=== PATIENT | female | born 1990 | race Caucasian/White ===

== ENCOUNTER 2016-11-29 10:00 | Emergency (ER) | payer SELFPAY ==
[~2016-11-29] VITALS: Ht 160 cm; Wt 63.6 kg
[~2016-11-29 10:00] MED LIST: ADVAIR IH; ALBUTEROL0.09 MG/A1 IH; ALLEGRA-D 24HOU1 T24 PO; AMOXICILLIN 50500 MG PO; AMOXICILLIN 8751 TAB PO; ANAPROX DS550 MG PO; ATARAX 25MG25 MG/TAB PO; BACTRIM DS 8001 TAB PO; BCP TD; BIRTH CONTROL PO; CEFTIN500 MG PO; CEPHALEXIN500 M1 PO; CLARITIN 1010 MG/TAB PO; DESOGEN 0.15 MG1 TAB PO; DIFLUCAN PO; DOXYCYCLINE 10100 MG PO; FLAGYL500 MG PO; FLOMAX0.4 MG PO; GENTAMICIN EYE D5 ML OP; IMPLANON; LO/OVRAL-28 301 TA1 PO; LORTAB 5/500 501 TAB PO; MOTRIN 800800 MG/TAB PO; MOTRIN800 MG PO; NAPROSYN500 MG PO; NO HOME MEDICATIONS; NORCO 325 MG-51 TAB PO; NORCO 325 MG-7.1 TAB PO; OCUFLOX OPHTH DR5 ML OU; OVRAL PO; PERCOCET 325 MG1 TA2 PO; PHENERGAN 25 TA25 MG PO; PHENERGAN W/CO120 ML PO; PREDNISONE20 MG PO; PROMETHAZINE12.5 M5 PO; PROVENTIL0.09 MG/A1 IH; SINGULAIR; TRAZODONE150 MG PO; VENTOLIN0.09 MG IH; VICODIN 5/5001 UDTAB PO; ZITHROMAX Z PA250 MG PO; ZOFRAN ODT4 MG PO; ZOLOFT100 MG PO; ZOLOFT25 MG PO; ZOLOFT50 MG PO; [UNRECOGNIZED DRUG - OTHER]; [UNRECOGNIZED DRUG - OTHER]; [UNRECOGNIZED DRUG - OTHER] PO
[2016-11-29 10:04] VITALS: BP 130/35; PULSE 87; TEMP 96.7
[2016-11-29] MEDS ORDERED: AMOXICILLIN875 MG PO (10:23)
== END 2016-11-29 10:30 | disposition home or self-care (01) ==
LOC: COL.ER 10:00
DX: H66.91 Otitis media, unspecified, right ear (principal); F17.210 Nicotine dependence, cigarettes, uncomplicated; B34.9 Viral infection, unspecified; R05 Cough

== ENCOUNTER 2017-08-17 16:19 | Emergency (ER) | payer SELFPAY ==
[~2017-08-17] VITALS: Ht 160 cm; Wt 65.9 kg
[~2017-08-17 16:19] MED LIST changes: +AMOXICILLIN875 MG PO
[2017-08-17 16:23] VITALS: BP 131/81; PULSE 97; TEMP 99.1
[2017-08-17] MEDS ORDERED: TESSALON P100 MG/CAP PO (16:50)
== END 2017-08-17 17:21 | disposition home or self-care (01) ==
LOC: COL.ER 16:19
DX: J06.9 Acute upper respiratory infection, unspecified (principal); F17.210 Nicotine dependence, cigarettes, uncomplicated

== ENCOUNTER 2018-05-14 17:03 | Emergency (ER) | payer SELFPAY ==
[~2018-05-14] VITALS: Ht 160 cm; Wt 70.5 kg
[~2018-05-14 17:03] MED LIST changes: +TESSALON P100 MG/CAP PO
[2018-05-14 17:04] VITALS: BP 148/111; TEMP 98
[2018-05-14 17:39] LABS: COLLECTION METHOD CLEAN CATCH
[2018-05-14 17:52] LABS: BASO % 0.2 % (0.0-2.0); EOS % 0.5 % (0-4.0); GRAN # 6.1 (1.4-6.5); GRAN % 74.4 % (42.2-75.2); HEMATOCRIT 38.5 % (37.0-47.0); HEMOGLOBIN 13.5 g/dl (12.5-16.0); LYMPH # 1.4 (1.2-3.4); LYMPH % 17.2 % (20.0-51.0); MEAN CELL VOLUME 95 fl (80.0-100.0); MEAN CORPUSCULAR HEMOGLOBIN 33 pg (27.0-31.0); MEAN CORPUSCULAR HGB CONC 35 g/dl (33.0-37.0); MEAN PLATELET VOLUME 10.3 fl (7.4-10.4); MONO # 0.6 (0.1-0.6); MONO % 7.3 % (1.7-9.3); PLATELET COUNT 278 K/mm3 (130-400); RED BLOOD COUNT 4.05 M/mm3 (4.10-5.30); REDCELL DISTRIBUTION WIDTH-CV 11.8 % (11.5-14.5)
[2018-05-14 17:54] LABS: URINE BACTERIA None Seen /hpf; URINE RBC >50 /hpf; URINE WBC 20-50 /hpf
[2018-05-14 18:00] LABS: PH 6 (5-8); URINE APPEARANCE Clear; URINE BILIRUBIN Negative (NEGATIVE); URINE BLOOD 3+ (NEGATIVE); URINE COLOR Yellow; URINE GLUCOSE Negative (NEGATIVE); URINE KETONE Negative (NEGATIVE); URINE LEUKOCYTE ESTERASE Trace (NEGATIVE); URINE NITRATE Negative (NEGATIVE); URINE PROTEIN(semi-quant) 1+ (NEGATIVE); URINE UROBILINOGEN Negative (NEGATIVE)
[2018-05-14 18:03] LABS: ALBUMIN 4.1 gm/dL (3.5-5.0); BILIRUBIN,TOTAL 0.7 mg/dL (0.0-1.0); CREATININE, serum 0.73 mg/dL (0.52-1.25); POTASSIUM 3.6 mmol/L (3.4-5.0); TOTAL PROTEIN 7.4 gm/dL (6.4-8.2)
[2018-05-14 18:32] LABS: THYROID STIMULATING HORMONE 5.46 uIU/mL (0.465-4.680)
[2018-05-14] MEDS ORDERED: OMNICEF 300MG300 MG PO (19:52)
[2018-05-14] MEDS ORDERED: FLAGYL500 MG PO (20:01)
[2018-05-14 20:10] VITALS: PULSE 61
[2018-05-14] MEDS ORDERED: DOXYCYCLINE 10100 MG PO (21:59)
== END 2018-05-14 20:10 | disposition home or self-care (01) ==
LOC: COL.ER 17:03
PROVIDERS: Physician Assistant
DX: N93.9 Abnormal uterine and vaginal bleeding, unspecified (principal); E03.9 Hypothyroidism, unspecified; N39.0 Urinary tract infection, site not specified; F17.210 Nicotine dependence, cigarettes, uncomplicated; Z90.49 Acquired absence of other specified parts of digestive tract; Z90.89 Acquired absence of other organs
CPT/HCPCS: J0696; J1885

== ENCOUNTER 2019-07-07 18:27 | Outpatient (CLI) | payer MEDICAID ==
[~2019-07-07] VITALS: Ht 162.6 cm; Wt 90.9 kg
[~2019-07-07 18:27] MED LIST changes: +OMNICEF 300MG300 MG PO
--- NOTE | 2019-07-07 18:30 | NUR ---
Pt arrived on unit ambulatory and with complaints of back pain and occasional contractions. Pt denies any leaking of fluid or vaginal bleeding and reports normal movement. Pt reports lower back pain starting earlier today and worsening. EFM and toco monitors started. Vital signs WNL. SVE by this RN closed/thick/high. Spoke with Dr. Kirkpatrick for an update on pt's arrival, concerns, history and FHR tracing reviewed. Orders for UA and PO tylenol received. See EMAR for details.
[2019-07-07 18:38] VITALS: BP 142/90; PULSE 75; TEMP 98.2
[2019-07-07] MEDS ORDERED: PRENATAL (18:47)
[2019-07-07] MEDS ORDERED: WELLBUTRIN XL150 MG PO (18:47)
[2019-07-07 19:32] LABS: COLLECTION METHOD CLEAN CATCH
[2019-07-07 20:00] VITALS: BP 115/70; PULSE 84
[2019-07-07 20:37] LABS: PH 7 (5-8); SQUAMOUS EPITHELIAL 0-2 /hpf; URINE APPEARANCE Clear; URINE BACTERIA Rare /hpf; URINE BILIRUBIN Negative (NEGATIVE); URINE BLOOD Negative (NEGATIVE); URINE COLOR Yellow; URINE GLUCOSE Negative (NEGATIVE); URINE KETONE Negative (NEGATIVE); URINE LEUKOCYTE ESTERASE Negative (NEGATIVE); URINE NITRATE Negative (NEGATIVE); URINE PROTEIN(semi-quant) Negative (NEGATIVE); URINE RBC 0-2 /hpf; URINE UROBILINOGEN Negative (NEGATIVE); URINE WBC 0-2 /hpf
[2019-07-07 20:54] VITALS: BP 112/65; PULSE 78
--- NOTE | 2019-07-07 21:00 | NUR ---
Spoke with Dr. Kirkpatrick for an update on pt's status. Labs reviewed and FHR tracing reviewed. Orders for discharge home received. Plan of care reviewed with pt. Pt verbalized an understanding, agreed with the plan and states no questions or concerns at this time.
== END 2019-07-07 21:05 | disposition home or self-care (01) ==
LOC: LDRO 18:27 → LDR 19:09 → LDRO 21:05
PROVIDERS: Obstetrics & Gynecology
DX: O99.89 Other specified diseases and conditions complicating pregnancy, childbirth and the puerperium (principal); M54.9 Dorsalgia, unspecified; Z3A.30 30 weeks gestation of pregnancy
CPT/HCPCS: OP

== ENCOUNTER 2019-08-11 14:01 | Emergency (ER) | payer MEDICAID ==
[~2019-08-11] VITALS: Ht 162.6 cm; Wt 95.0 kg
[~2019-08-11 14:01] MED LIST changes: +PRENATAL; +WELLBUTRIN XL150 MG PO
[2019-08-11 14:12] VITALS: BP 129/97
[2019-08-11] MEDS ORDERED: ZITHROMAX 250M250 MG PO (15:45)
[2019-08-11] MEDS ORDERED: PREDNISONE20 MG PO (15:45)
[2019-08-11 16:53] VITALS: PULSE 103; TEMP 98.4
== END 2019-08-11 16:53 | disposition home or self-care (01) ==
LOC: COL.ER 14:01
DX: O99.513 Diseases of the respiratory system complicating pregnancy, third trimester (principal); J40 Bronchitis, not specified as acute or chronic; Z90.89 Acquired absence of other organs; Z87.442 Personal history of urinary calculi; Z3A.36 36 weeks gestation of pregnancy
CPT/HCPCS: J7512

== ENCOUNTER 2019-08-30 22:19 | Outpatient (CLI) | payer MEDICAID ==
[~2019-08-30] VITALS: Ht 165.1 cm; Wt 97.7 kg
[~2019-08-30 22:19] MED LIST changes: +ZITHROMAX 250M250 MG PO
--- NOTE | 2019-08-30 22:30 | NUR ---
G5L2 at 38 weeks and 1 day arrives to unit with complaint of pelvic pressure. Pt states she was having mild contractions for a few hours today that stopped around 1730 but has felt an increase in pelvic pressure since. Pt reports good movement, denies LOF or vaginal bleeding. Pt denies headaches, blurry vision or RUQ pain. Pt oriented to room, call light within reach, bed in low and locked position. US and toco explained and applied. SVE closed/50/-3. Plan of care reviewed with patient.
[2019-08-30 22:45] VITALS: BP 134/85; PULSE 89; TEMP 98.1
--- NOTE | 2019-08-30 23:15 | NUR ---
Category 1 FHR tracing obtained. Reviewed discharge plan with patient, pt verbalized understanding. Return precautions reviewed. Pt seen ambulating off unit with significant other.
== END 2019-08-30 23:15 | disposition home or self-care (01) ==
LOC: LDRO 22:19 → LDR 22:30 → LDRO 23:15 → LDR 08-31 16:13
DX: O26.893 Other specified pregnancy related conditions, third trimester (principal); R10.2 Pelvic and perineal pain; Z3A.38 38 weeks gestation of pregnancy
CPT/HCPCS: OP

== ENCOUNTER → 2019-09-04 | Outpatient (CLI) | payer MEDICAID ==
[2019-09-04 12:51] LABS: COLLECTION METHOD CLEAN CATCH
[2019-09-04 12:56] LABS: BASO % 0.2 % (0.0-2.0); EOS % 0.3 % (0-4.0); GRAN # 6.1 (1.4-6.5); GRAN % 70.6 % (42.2-75.2); HEMATOCRIT 35.8 % (37.0-47.0); HEMOGLOBIN 11.9 g/dl (12.5-16.0); LYMPH # 1.8 (1.2-3.4); LYMPH % 20.8 % (20.0-51.0); MEAN CELL VOLUME 96 fl (80.0-100.0); MEAN CORPUSCULAR HEMOGLOBIN 32 pg (27.0-31.0); MEAN CORPUSCULAR HGB CONC 33 g/dl (33.0-37.0); MEAN PLATELET VOLUME 11.6 fl (7.4-10.4); MONO # 0.6 (0.1-0.6); MONO % 7.4 % (1.7-9.3); PLATELET COUNT 245 K/mm3 (130-400); RED BLOOD COUNT 3.72 M/mm3 (4.10-5.30); REDCELL DISTRIBUTION WIDTH-CV 13.4 % (11.5-14.5)
[2019-09-04 12:59] LABS: PH 6 (5-8); SQUAMOUS EPITHELIAL 0-2 /hpf; URINE APPEARANCE Clear; URINE BACTERIA Rare /hpf; URINE BILIRUBIN Negative (NEGATIVE); URINE BLOOD Negative (NEGATIVE); URINE COLOR Yellow; URINE GLUCOSE Negative (NEGATIVE); URINE KETONE Negative (NEGATIVE); URINE LEUKOCYTE ESTERASE Negative (NEGATIVE); URINE NITRATE Negative (NEGATIVE); URINE PROTEIN(semi-quant) 1+ (NEGATIVE); URINE RBC 0-2 /hpf; URINE UROBILINOGEN Negative (NEGATIVE); URINE WBC 0-2 /hpf
[2019-09-04 13:07] LABS: ALBUMIN 3.6 gm/dL (3.5-5.0); BILIRUBIN,TOTAL 0.4 mg/dL (0.0-1.0); CALCIUM 9.5 mg/dL (8.4-10.2); CREATININE, serum 0.56 (0.52-1.25); TOTAL PROTEIN 6.7 gm/dL (6.4-8.2)
--- NOTE | 2019-09-04 13:09 | NUR ---
1235 - Patient reports to unit for monitoring after high blood pressures in office. Patient reports seeing spots and floaters, denies bleeding, contractions, and reports good movement. Pt changed into gown, urine sample obtained, monitoring explained and placed, vitals taken. Lab to bedside to draw ordered labs. Assessment completed. Pt updated and agrees to plan of care.
[2019-09-04 13:33] LABS: TRICYCLIC ANTIDEPRESS URINE NEGATIVE
[2019-09-04 13:35] VITALS: BP 127/80; PULSE 88; TEMP 98.8
--- NOTE | 2019-09-04 13:40 | NUR ---
Dr. Benjamin notified at 1325 regarding patient assessment, lab results, and vital signs. Reviewed FHR strip. Orders to discharge home with precautions and office will call for follow up appointment. 1340- Patient given discharge instructions. Reviewed PIH and labor precautions and kick counts. Patient denies questions and leaves ambulatory.
== END ==
LOC: LDRO 12:25 → LDR 12:30 → LDRO 09-06 12:30
PROVIDERS: Obstetrics & Gynecology
DX: O13.3 Gestational [pregnancy-induced] hypertension without significant proteinuria, third trimester (principal); O99.89 Other specified diseases and conditions complicating pregnancy, childbirth and the puerperium; H43.399 Other vitreous opacities, unspecified eye; R60.0 Localized edema; Z3A.38 38 weeks gestation of pregnancy
CPT/HCPCS: OP

== ENCOUNTER 2019-09-08 20:11 | Outpatient (CLI) | payer MEDICAID ==
[~2019-09-08] VITALS: Ht 162.6 cm; Wt 99.5 kg
--- NOTE | 2019-09-08 20:20 | NUR ---
HERE WITH FOB FOR LABOR CHECK. CTXS ALL DAY AND STRONGER NOW IN BACK AND LOWER ABDOMEN ABOUT Q 6-10 MIN PT STATES
[2019-09-08 20:34] VITALS: BP 140/88; PULSE 96; TEMP 98.7
== END 2019-09-08 22:24 | disposition home or self-care (01) ==
LOC: LDRO 20:11 → LDR 20:11 → LDRO 22:24
DX: Z34.93 Encounter for supervision of normal pregnancy, unspecified, third trimester (principal); Z3A.39 39 weeks gestation of pregnancy
CPT/HCPCS: OP

== ENCOUNTER 2019-09-09 02:26 | Inpatient (IN) | payer MEDICAID ==
[2019-09-09] VITALS (26 sets, daily range): BP systolic 104–156; BP diastolic 7–94; PULSE 73–121; TEMP 97.8–98.2
[~2019-09-09] VITALS: Ht 162.6 cm; Wt 99.5 kg
--- NOTE | 2019-09-09 02:45 | NUR ---
RETURNS WITH SROM ACTIVE LABOR /-2. CLEAR FLUID ADM ASSESSMENT- IV AND LEIGHANN BEGUN AFTER ORDERS RECEIVED
[2019-09-09 03:44] LABS: BASO % 0.3 % (0.0-2.0); EOS # 0.1 (0.0-0.7); EOS % 0.6 % (0-4.0); GRAN # 8.1 (1.4-6.5); GRAN % 70.3 % (42.2-75.2); HEMOGLOBIN 11.6 g/dl (12.5-16.0); LYMPH # 2.4 (1.2-3.4); LYMPH % 20.8 % (20.0-51.0); MEAN CELL VOLUME 96 fl (80.0-100.0); MEAN CORPUSCULAR HEMOGLOBIN 32 pg (27.0-31.0); MEAN CORPUSCULAR HGB CONC 33 g/dl (33.0-37.0); MEAN PLATELET VOLUME 11.5 fl (7.4-10.4); MONO # 0.8 (0.1-0.6); MONO % 7.2 % (1.7-9.3); PLATELET COUNT 249 K/mm3 (130-400); RED BLOOD COUNT 3.65 M/mm3 (4.10-5.30); REDCELL DISTRIBUTION WIDTH-CV 13.4 % (11.5-14.5)
--- NOTE | 2019-09-09 03:50 | NUR ---
0350 TEST DOSE FOR EPIDURAL PER Joanne CHAPMAN. TO;ERATED WELL TO LL 0400 6-7 CM KENDRICK PLACED 0405 PROLONGED VARIABLE DECEL TO 65 BPM . SVE NO CORD PALPABLE. NO REBOUND WHN HEAD PUSHED UP WITH EXAM HAND. TO OPPOSITE SIDE, NO RELOVE, O2 MASK 10 L. 0411 EPHEDRINE 10 MG IV DUE TO BP 104/55. RETURN TO BASELINE AFTER 6 MIN FROM EPHEDRINE DOSE.110/66 -418 DR LUKE HERE. PT C/O LEFT EYE LID AREA FELLING SWOLLEN. COLD COMPRESS APPLIED- VISIBLE EDEMA SLIGHTLY
--- NOTE | 2019-09-09 07:04 | NUR ---
BEDSIDE REPORT FROM YOKO LERMA AT 0615. PATIENT RESTING IN BED WITH PEANUT BALL IN PLACE. 0640- SVE BY THIS NURSE. CALLED DR LUKE TO COME TO DELIVERY 0644- DR LUKE IN ROOM. PATIENT PUSHING INTERMITTENTLY WITH CONTRACTIONS 0704- BY DR LUKE. TO MOTHERS ABDOMEN IN CARE OF MAVIS Steel RN. FOB CUT CORD. PLACENTA SPON DELIVERED AT 0707. PITOCIN AT 333 MLS. /HR. FUNDAL MASSAGE PROVIDED. PERINEUM INTACT. ROSE MARIE CARE PROVIDED. ICE PACK TO PERINEUM. RECOVERY STARTED AT 0715.
[2019-09-09 07:31] LABS: TRICYCLIC ANTIDEPRESS URINE NEGATIVE
--- NOTE | 2019-09-09 12:00 | NUR ---
Assume care of patient. Rests in bed, alert. 1240 Ibuprofen 600 mg given per request and as ordered.
--- NOTE | 2019-09-09 17:15 | NUR ---
Rests in bed, alert. Percocet 5/325 mg one given per request and as ordered.
[2019-09-10 05:15] VITALS: BP 144/89; PULSE 72
[2019-09-10 08:00] VITALS: BP 131/84; PULSE 89; TEMP 97.8
--- NOTE | 2019-09-10 09:32 | NUR ---
Hat Blocking Machine Operator received social service consult for patient as she has history of drug use. PHAM met with RN, who advised no other risk factors or concerns at this time. PHAM reviewed patient chart and noted positive urine drug screen on 02/02/19 for cannabinoid. Patient tested negative yesterday upon delivery. PHAM met with patient and father of the , Isreal (ph#[phone]) to review supports and any needed resources. Patient reports she and Isreal have family in the area and have everything they need to care for their . Patient states she will be . Patient does not work and reports she will not need childcare at this time. Patient has two other children, ages 12 and 13. Patient reports she already has WIC set up through [facility]. Patient reports history of depression and states she currently takes medication. Patient states she has utilized [facility] in the past and knows how to access their services. PHAM addressed the positive urine drug screen from 02/02/19. Patient states she and Isreal went to [place] for their anniversary before she realized she was and she used marijuana at this time. Patient states once she realized she was she stopped. Patient states she has no concerns about returning home with infant. PHAM provided [facility] Resource Guide along with a brief review of pertinent services. PHAM made report in Child Protective Services based on the positive urine drug screen. Intake #[id number].
[2019-09-10] MEDS ORDERED: IBU600 MG PO (10:53)
--- NOTE | 2019-09-10 12:05 | NUR ---
Dr Powell here and at pt's bedside. Hemmorrhoid evaluated and decision made to make incision and drain. Incision made and thrombectomy was performed. Guaze dressing applied. Plan of care reviewed and pt to do sitz baths and warm compresses, use Anusol and change dressings BID and as needed. Pt tolerated well.
[2019-09-10 16:30] VITALS: BP 130/80; PULSE 80; TEMP 98
[2019-09-10 20:00] VITALS: BP 142/77; PULSE 83; TEMP 98.3
[2019-09-11 08:00] VITALS: BP 122/64; PULSE 72; TEMP 98.6
[2019-09-11] MEDS ORDERED: PERCOCET 325 MG1 TA2 PO (12:34)
--- NOTE | 2019-09-11 13:15 | NUR ---
PATIENT DISCHARGE INSTRUCTIONS REVIEWED WITH HER AND . SCRIPT FOR PERCOCET GIVEN AND EXPLAINED. DISCHARGE TEACHING REVIEWED. PATIENT VERBALIZES UNDERSTANDING. ESCORTED OUT TO VEHICLE
== END 2019-09-11 13:30 | disposition home or self-care (01) | DRG 807 ==
LOC: LDRO 02:26 → OB 02:50 → LDR 02:50 → OB 09:00
PROVIDERS: ADMIT Obstetrics & Gynecology
PROC: 10E0XZZ Delivery of Products of Conception, External Approach (ICD-10-PCS; principal; 2019-09-09)
DX: O99.824 Streptococcus B carrier state complicating childbirth (principal); Z37.0 Single live birth; O22.43 Hemorrhoids in pregnancy, third trimester; Z3A.39 39 weeks gestation of pregnancy; Z90.49 Acquired absence of other specified parts of digestive tract; Z90.89 Acquired absence of other organs; Z87.442 Personal history of urinary calculi; Z87.891 Personal history of nicotine dependence
CPT/HCPCS: J2540; J2590; J7120

== ENCOUNTER 2020-06-12 13:12 | Emergency (ER) | payer MEDICAID ==
[~2020-06-12] VITALS: Ht 162.6 cm; Wt 81.8 kg
[~2020-06-12 13:12] MED LIST changes: +IBU600 MG PO
[2020-06-12 13:23] VITALS: BP 138/93; TEMP 99
[2020-06-12] MEDS ORDERED: CRUTCHES MC (14:40)
[2020-06-12 14:53] VITALS: PULSE 87
== END 2020-06-12 14:53 | disposition home or self-care (01) ==
LOC: COL.ER 13:12
DX: S93.402A Sprain of unspecified ligament of left ankle, initial encounter (principal); W10.8XXA Fall (on) (from) other stairs and steps, initial encounter; Y92.009 Unspecified place in unspecified non-institutional (private) residence as the place of occurrence of the external cause

== ENCOUNTER 2021-05-07 12:33 | Emergency (ER) | payer MEDICAID ==
[~2021-05-07] VITALS: Ht 162.6 cm; Wt 79.5 kg
[~2021-05-07 12:33] MED LIST changes: +CRUTCHES MC
[2021-05-07 13:05] VITALS: BP 143/88; PULSE 81; TEMP 98.5
[2021-07-06] MEDS ORDERED: ZOFRAN ODT4 MG PO (13:38)
== END 2021-05-07 13:07 | disposition home or self-care (01) ==
LOC: COL.ER 12:33
DX: B08.4 Enteroviral vesicular stomatitis with exanthem (principal)

== ENCOUNTER 2021-06-20 12:36 | Emergency (ER) | payer MEDICAID ==
[~2021-06-20] VITALS: Ht 162.6 cm; Wt 77.3 kg
[2021-06-20 12:47] VITALS: BP 164/79; TEMP 98
[2021-06-20 13:30] VITALS: PULSE 82
[2021-07-06] MEDS ORDERED: ZOFRAN ODT4 MG PO (13:38)
== END 2021-06-20 13:30 | disposition home or self-care (01) ==
LOC: COL.ER 12:36
DX: B08.4 Enteroviral vesicular stomatitis with exanthem (principal); F17.200 Nicotine dependence, unspecified, uncomplicated

== ENCOUNTER 2021-10-08 17:10 | Emergency (ER) | payer MEDICAID ==
[~2021-10-08] VITALS: Ht 162.6 cm; Wt 75.9 kg
[2021-10-08 17:32] VITALS: TEMP 98.3
[2021-10-08] MEDS ORDERED: AMOXICILLIN 8751 TAB PO (17:54)
[2021-10-08] MEDS ORDERED: DIFLUCAN150 MG PO (17:54)
[2021-10-08 18:23] VITALS: BP 132/78; PULSE 76
== END 2021-10-08 18:23 | disposition home or self-care (01) ==
LOC: COL.ER 17:10
DX: J32.9 Chronic sinusitis, unspecified (principal); F32.A Depression, unspecified; Z86.16 Personal history of COVID-19; Z79.899 Other long term (current) drug therapy

== ENCOUNTER 2021-11-14 14:08 | Emergency (ER) | payer MEDICAID ==
[~2021-11-14] VITALS: Ht 162.6 cm; Wt 77.3 kg
[~2021-11-14 14:08] MED LIST changes: +DIFLUCAN150 MG PO
[2021-11-14 14:34] VITALS: TEMP 98.8
[2021-11-14] MEDS ORDERED: PREDNISONE20 MG PO (16:39)
[2021-11-14] MEDS ORDERED: PROAIR HFA0.09 MG/AC IH (16:39)
[2021-11-14 16:52] VITALS: BP 134/83; PULSE 67
== END 2021-11-14 16:52 | disposition home or self-care (01) ==
LOC: COL.ER 14:08
DX: J45.901 Unspecified asthma with (acute) exacerbation (principal); J06.9 Acute upper respiratory infection, unspecified; Z20.822 Contact with and (suspected) exposure to COVID-19; Z87.891 Personal history of nicotine dependence

== ENCOUNTER 2021-12-27 08:59 | Emergency (ER) | payer MEDICAID ==
[~2021-12-27] VITALS: Ht 162.6 cm; Wt 77.3 kg
[~2021-12-27 08:59] MED LIST changes: +PROAIR HFA0.09 MG/AC IH
[2021-12-27 09:09] VITALS: TEMP 98.4
[2021-12-27 09:47] LABS: BASO % 0.3 % (0.0-2.0); EOS # 0.1 K/mm3 (0.0-0.7); EOS % 0.9 % (0.0-4.0); GRAN # 6.3 K/mm3 (1.4-6.5); GRAN % 68.3 % (42.2-75.2); HEMOGLOBIN 11.8 g/dl (12.5-16.0); LYMPH # 2.1 K/mm3 (1.2-3.4); LYMPH % 23.1 % (20.0-51.0); MEAN CELL VOLUME 93 fl (80.0-100.0); MEAN CORPUSCULAR HEMOGLOBIN 33 pg (27-31); MEAN CORPUSCULAR HGB CONC 35 g/dl (33.0-37.0); MONO # 0.7 K/mm3 (0.1-0.6); MONO % 7.2 % (1.7-9.3); PLATELET COUNT 263 K/mm3 (130-400); RED BLOOD COUNT 3.62 M/mm3 (4.10-5.30); REDCELL DISTRIBUTION WIDTH-CV 12.6 % (11.5-14.5)
[2021-12-27 09:48] LABS: HEMATOCRIT 33.6 % (37.0-47.0)
[2021-12-27 10:05] LABS: ALBUMIN 3.9 gm/dL (3.5-5.0); BILIRUBIN,TOTAL 0.7 mg/dL (0.2-1.2); C-REACTIVE PROTEIN 0.5 mg/dL (0.00-0.50); CALCIUM 8.9 mg/dL (8.4-10.2); CREATININE, serum 0.72 mg/dL (0.57-1.11); POTASSIUM 4.1 mmol/L (3.5-4.5); TOTAL PROTEIN 6.7 gm/dL (6.2-8.1)
[2021-12-27 11:26] LABS: COLLECTION METHOD CLEAN CATCH
[2021-12-27 11:32] LABS: PH 6 (5-8); SQUAMOUS EPITHELIAL 0-2 /hpf (0-10); URINE APPEARANCE Clear (CLEAR/HAZY); URINE BACTERIA None Seen /hpf (NONE SEEN); URINE BILIRUBIN Negative (NEGATIVE); URINE BLOOD 2+ (NEGATIVE); URINE COLOR Yellow (YELLOW); URINE GLUCOSE Negative (NEGATIVE); URINE KETONE Negative (NEGATIVE); URINE LEUKOCYTE ESTERASE Negative (NEGATIVE); URINE NITRATE Negative (NEGATIVE); URINE PROTEIN(semi-quant) Negative (NEGATIVE); URINE RBC 0-2 /hpf (0-2); URINE UROBILINOGEN Negative (NEGATIVE)
[2021-12-27] MEDS ORDERED: METHERGINE0.2 MG/TAB PO (11:36)
[2021-12-27] MEDS ORDERED: DOXYCYCLINE 10100 MG PO (11:36)
[2021-12-27] MEDS ORDERED: NORCO 325 MG-51 TAB PO (11:37)
[2021-12-27 12:01] VITALS: BP 112/68; PULSE 73
== END 2021-12-27 12:01 | disposition home or self-care (01) ==
LOC: COL.ER 08:59
PROVIDERS: Family Medicine
DX: O03.4 Incomplete spontaneous abortion without complication (principal); Z90.49 Acquired absence of other specified parts of digestive tract; Z86.16 Personal history of COVID-19
CPT/HCPCS: J7120

== ENCOUNTER 2022-04-05 09:02 | Emergency (ER) | payer OTHER, MEDICAID ==
[~2022-04-05] VITALS: Ht 162.6 cm; Wt 72.7 kg
[~2022-04-05 09:02] MED LIST changes: +METHERGINE0.2 MG/TAB PO
[2022-04-05 09:07] VITALS: BP 127/79; TEMP 98.3
[2022-04-05 11:15] VITALS: PULSE 66
== END 2022-04-05 11:15 | disposition home or self-care (01) ==
LOC: COL.ER 09:02
DX: S60.222A Contusion of left hand, initial encounter (principal); Z86.16 Personal history of COVID-19; Z28.310 Unvaccinated for COVID-19; W20.8XXA Other cause of strike by thrown, projected or falling object, initial encounter; Y92.59 Other trade areas as the place of occurrence of the external cause; Y99.0 Civilian activity done for income or pay

== ENCOUNTER 2022-04-09 07:55 | Emergency (ER) | payer MEDICAID ==
[~2022-04-09] VITALS: Ht 162.6 cm; Wt 70.5 kg
[2022-04-09 08:19] VITALS: BP 112/78; TEMP 98
[2022-04-09] MEDS ORDERED: PEN-VEE K500 MG PO (08:31)
[2022-04-09 08:42] VITALS: PULSE 72
== END 2022-04-09 08:43 | disposition home or self-care (01) ==
LOC: COL.ER 07:55
DX: J02.9 Acute pharyngitis, unspecified (principal); Z87.891 Personal history of nicotine dependence; Z86.16 Personal history of COVID-19; Z28.310 Unvaccinated for COVID-19

== ENCOUNTER 2022-09-13 18:58 | Observation (INO) | payer MEDICAID ==
[~2022-09-13] VITALS: Ht 162.6 cm; Wt 164.0 kg
[~2022-09-13 18:58] MED LIST changes: +PEN-VEE K500 MG PO
[2022-09-13 19:45] LABS: BASO % 0.5 % (0.0-2.0); EOS # 0.1 K/mm3 (0.0-0.7); EOS % 1.6 % (0.0-4.0); GRAN # 3.5 K/mm3 (1.4-6.5); GRAN % 47.5 % (42.2-75.2); HEMOGLOBIN 12.7 g/dl (12.5-16.0); LYMPH # 3.1 K/mm3 (1.2-3.4); LYMPH % 42.5 % (20.0-51.0); MEAN CELL VOLUME 95 fl (80.0-100.0); MEAN CORPUSCULAR HEMOGLOBIN 33 pg (27-31); MEAN CORPUSCULAR HGB CONC 35 g/dl (33.0-37.0); MEAN PLATELET VOLUME 9.4 fl (7.4-10.4); MONO # 0.6 K/mm3 (0.1-0.6); MONO % 7.6 % (1.7-9.3); PLATELET COUNT 367 K/mm3 (130-400); RED BLOOD COUNT 3.88 M/mm3 (4.10-5.30); REDCELL DISTRIBUTION WIDTH-CV 12.9 % (11.5-14.5)
[2022-09-13 19:46] LABS: HEMATOCRIT 36.7 % (37.0-47.0)
[2022-09-13 20:02] LABS: ALBUMIN 4.1 gm/dL (3.5-5.0); BILIRUBIN,TOTAL 0.7 mg/dL (0.2-1.2); CALCIUM 9.1 mg/dL (8.4-10.2); CREATININE, serum 0.78 mg/dL (0.57-1.11); POTASSIUM 3.7 mmol/L (3.5-4.5); TOTAL PROTEIN 7.7 gm/dL (6.2-8.1)
[2022-09-13 20:07] LABS: COLLECTION METHOD CLEAN CATCH
[2022-09-13 20:15] LABS: MUCOUS Present (NOT PRESENT); SQUAMOUS EPITHELIAL 0-2 /hpf (0-10); URINE BACTERIA None Seen /hpf (NONE SEEN); URINE RBC 0-2 /hpf (0-2)
[2022-09-13 20:17] LABS: PH 6.5 (5.0-8.5); URINE APPEARANCE Clear (CLEAR/HAZY); URINE BLOOD Negative (NEGATIVE); URINE COLOR Yellow (YELLOW); URINE GLUCOSE Negative (NEGATIVE); URINE KETONE TRACE (NEGATIVE); URINE NITRATE Negative (NEGATIVE); URINE PROTEIN(semi-quant) Negative (NEGATIVE); URINE UROBILINOGEN 0.2 E.U/dL (0.2-1.0)
--- NOTE | 2022-09-13 20:40 | NUR ---
2039 G7L3 7.5 WEEKS PREG TO 220 PER W/C FROM ED WITH C/O RIGHT SIDE AND RIGHT FLANK PAIN. STATES HAS BEEN HAVING OLD BROWN VAG BLEEDING FOR LAST FEW DAYS. WAS IN [place] TODAY [facility] AND WAS TOLD SHE HAD A ECTOPIC AND INSTRUCTED TO GO THE THE ER. INT IN LEFT AC. STATES PAIN 5/10. ADM ASSESSMENT COMPLETED. 2114 IV TO INT PER IV PUMP. MS 2 MG IV WITH RELIEF OF PAIN. INSTRUCTED ON NPO AND I/O.
[2022-09-13 21:00] VITALS: BP 110/61; PULSE 75; TEMP 99
[2022-09-13] MEDS ORDERED: VRAYLAR1.5 MG PO (21:55)
[2022-09-14] VITALS (11 sets, daily range): BP systolic 91–119; BP diastolic 50–69; PULSE 57–95; TEMP 98–98.9
--- NOTE | 2022-09-14 09:29 | NUR ---
Initial visit attempt; Patient indisposed, Guidance Counselor left card offering God's blessings and information regarding the availability of spiritual care at our hospital.
[2022-09-14] MEDS ORDERED: PERCOCET 325 MG1 TA2 PO (12:07)
[2022-09-14] MEDS ORDERED: IBU600 MG PO (12:07)
--- NOTE | 2022-09-14 12:40 | NUR ---
Pt back on unit via bed from OR. Report received. Plan of care reviewed with pt and boyfriend at the bedside. Call light within reach.
--- NOTE | 2022-09-14 15:00 | NUR ---
Discharge instructions and follow up care reviewed with pt and boyfriend at the bedside. Both verbalized an understanding, agreed with the plan and states no questions or concerns at this time.
[2023-04-12] MEDS ORDERED: DICLEGIS PO (13:21)
== END 2022-09-14 15:15 | disposition home or self-care (01) ==
LOC: COL.ER 18:58 → OB 20:09
PROVIDERS: Emergency Medicine; ADMIT Obstetrics & Gynecology
DX: O00.101 Right tubal pregnancy without intrauterine pregnancy (principal); K66.0 Peritoneal adhesions (postprocedural) (postinfection); Z3A.01 Less than 8 weeks gestation of pregnancy; Z87.891 Personal history of nicotine dependence
CPT/HCPCS: J1100; J2270; J2405; J2704; J2710; J3010; J7120

== ENCOUNTER 2023-10-07 18:18 | Emergency (ER) | payer MEDICAID ==
[~2023-10-07] VITALS: Ht 162.6 cm; Wt 72.7 kg
[~2023-10-07 18:18] MED LIST changes: +DICLEGIS PO; +VRAYLAR1.5 MG PO
[2023-10-07 18:26] VITALS: BP 135/85; TEMP 98.2
[2023-10-07] MEDS ORDERED: FLEXERIL 1010 MG/TAB PO (19:29)
[2023-10-07] MEDS ORDERED: Home Cyclobenzaprine 10 MG #2 TABS/PACK PO ONE (19:30)
[2023-10-07 19:50] VITALS: PULSE 64
== END 2023-10-07 19:50 | disposition home or self-care (01) ==
LOC: COL.ER 18:18
DX: S46.211A Strain of muscle, fascia and tendon of other parts of biceps, right arm, initial encounter (principal); Z86.16 Personal history of COVID-19; X50.1XXA Overexertion from prolonged static or awkward postures, initial encounter; Y93.F2 Activity, caregiving, lifting

== ENCOUNTER 2024-03-04 15:02 | Emergency (ER) | payer MEDICAID ==
[~2024-03-04] VITALS: Ht 154.9 cm; Wt 75.0 kg
[~2024-03-04 15:02] MED LIST changes: +DULCOLAX S10 MG/SUPP RC; +FLEXERIL 1010 MG/TAB PO
[2024-03-04 15:09] VITALS: BP 125/77; TEMP 98.1
[2024-03-04] MEDS ORDERED: PREDNISONE50 MG PO (16:40)
[2024-03-04 17:12] VITALS: PULSE 63
== END 2024-03-04 17:12 | disposition home or self-care (01) ==
LOC: COL.ER 15:02
DX: L50.9 Urticaria, unspecified (principal); Z87.891 Personal history of nicotine dependence

== ENCOUNTER 2024-03-22 22:17 | Emergency (ER) | payer MEDICAID ==
[~2024-03-22] VITALS: Ht 162.6 cm; Wt 75.0 kg
[~2024-03-22 22:17] MED LIST changes: +PREDNISONE50 MG PO
[2024-03-22 22:20] VITALS: BP 126/80; TEMP 98
[2024-03-22] MEDS ORDERED: diphenhydrAMINE 50 MG/ML 1 ML VIAL IM ONE (22:45)
[2024-03-22 23:42] VITALS: PULSE 74
== END 2024-03-22 23:42 | disposition home or self-care (01) ==
LOC: COL.ER 22:17
DX: O99.711 Diseases of the skin and subcutaneous tissue complicating pregnancy, first trimester (principal); L50.9 Urticaria, unspecified; O99.331 Smoking (tobacco) complicating pregnancy, first trimester; F17.210 Nicotine dependence, cigarettes, uncomplicated; Z3A.08 8 weeks gestation of pregnancy
CPT/HCPCS: J1200